=== PATIENT | female | born 1990 | race Caucasian/White ===

== ENCOUNTER 2024-03-16 13:48 | Emergency (ER) | payer OTHER ==
[~2024-03-16] VITALS: Ht 175.3 cm; Wt 76.7 kg
[2024-03-16 13:49] VITALS: BP 136/96; PULSE 104; RESP 18; TEMP 97.5; O2SAT 97
[2024-03-16] MEDS: LORazepam 1 MG TAB PO ONE (15:23)
[2024-03-16] MEDS: ONDANSETRON 4 MG ODT PO ONE (15:23)
[2024-03-16 15:40] VITALS: BP 136/96; PULSE 104; RESP 18; TEMP 97.5; O2SAT 97
== END 2024-03-16 15:40 | disposition home or self-care (01) ==
LOC: MED 13:48
DX: F41.9 Anxiety disorder, unspecified (principal); F10.10 Alcohol abuse, uncomplicated; F50.81 Binge eating disorder; R45.851 Suicidal ideations; K21.9 Gastro-esophageal reflux disease without esophagitis; Y90.9 Presence of alcohol in blood, level not specified
CPT/HCPCS: 99283; Q0162